=== PATIENT | female | born 1945 | race Caucasian/White ===

== ENCOUNTER → 2022-09-05 09:54 | Outpatient (BNVA) | payer BC, SELFPAY | PROVIDERS: PCP Internal Medicine; Visit Provider Nurse Practitioner Family ==

== ENCOUNTER 2022-12-19 14:56 | Outpatient (AMB) | payer BC, SELFPAY ==
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
[2022-12-19 15:11] VITALS: BP 134/82; PULSE 67; O2SAT 98
== END 2022-12-19 16:08 | disposition home or self-care (01) ==
PROVIDERS: Visit Provider Nurse Practitioner Family
DX: G43.009 Migraine without aura, not intractable, without status migrainosus (principal); G47.33 Obstructive sleep apnea (adult) (pediatric); G47.19 Other hypersomnia; R06.83 Snoring; G47.9 Sleep disorder, unspecified; M54.2 Cervicalgia; R47.1 Dysarthria and anarthria; R41.89 Other symptoms and signs involving cognitive functions and awareness
CPT/HCPCS: 99214

== ENCOUNTER → 2022-12-19 14:56 | Outpatient (BNVA) | payer BC, SELFPAY | PROVIDERS: Visit Provider Nurse Practitioner Family ==

== ENCOUNTER 2023-03-13 13:25 | Outpatient (REF) | payer BC, SELFPAY ==
--- NOTE | ~2023-03-13 | MR_ITS ---
EXAMINATION: MR BRAIN WITHOUT AND WITH CONTRAST CLINICAL INFORMATION: New onset dysarthria, worsening cognitive signs and symptoms. COMPARISON: None available. TECHNIQUE: Multiplanar, multisequence imaging of the brain was performed before and after the intravenous administration of 10 mL of Gadavist. FINDINGS: There is no acute infarction, mass, hemorrhage, or extra-axial collection. No abnormal or unexpected intracranial enhancement is seen. The ventricles, sulci, and basilar cisterns are normal in size and configuration. There is a mild degree of brain parenchymal volume loss. Mild nonspecific T2/FLAIR hyperintensity is seen within the cerebral white matter, typical of chronic microangiopathy. The flow voids of the major intracranial arteries appear intact. The bones and extracranial soft tissues are within normal limits. There is small osseous defect and scarring within the high left parietal scalp/calvarium possibly representing the site of a old zina hole. MR/MR head/brain wo/w con IMPRESSION: No mass lesion, acute infarction, or abnormal intracranial enhancement. No unexpected brain parenchymal volume loss.
[2023-03-13] MEDS: gadobutroL 10 ML VIAL IVPUSH (14:55)
== END 2023-03-13 13:26 | disposition home or self-care (01) ==
LOC: HO.MRI 13:25
PROVIDERS: PCP Internal Medicine; Visit Provider Nurse Practitioner Family
DX: R47.1 Dysarthria and anarthria (principal); F09 Unspecified mental disorder due to known physiological condition; Z85.3 Personal history of malignant neoplasm of breast; Z87.828 Personal history of other (healed) physical injury and trauma
CPT/HCPCS: 70553; A9585

== ENCOUNTER 2023-04-11 14:32 | Outpatient (AMB) | payer BC, SELFPAY ==
--- NOTE | 2023-04-11 14:33 | MHC.OFFVIS ---
Intake Vital Signs 04/11/23 14:34 Height 5 ft 3 in Weight 220 lb 4 oz BMI 39.0 BP 124/72 Blood Pressure Location Rt brachial Position Sitting Pulse 70 Pulse Source Pulse Oximeter Pulse Oximetry (%) 96 Oxygen Delivery Method Room Air Intake Visit Reasons: 3 f/u Headaches - Confirmed Intake Note: Pt presents to the office today for a 3 month follow up for headaches. Pt states her headaches have improved since taking the medications. Allergies hydromorphone Allergy (Unknown, Verified 04/11/23 14:39) Unknown nizatidine Allergy (Unknown, Verified 04/11/23 14:39) Unknown ranitidine Allergy (Unknown, Verified 04/11/23 14:39) Unknown Medication List - Last Reconciled 04/11/23 by ANA PAULA Neff amitriptyline 100 mg PO BEDTIME biotin mcg PO indapamide 2.5 mg PO DAILY lactulose mL PO lidocaine HCl 4% (Aspercreme (lidocaine HCl)) 1 appl topical BID loratadine 10 mg PO DAILY losartan-hydrochlorothiazide 100-25 mg 1 tab PO DAILY metoprolol succinate ER 100 mg PO DAILY pantoprazole 40 mg PO DAILY rimegepant (Nurtec ODT) 75 mg orally daily PRN at onset of headache; 30 days HPI HPI Comments History of Present Illness Details 77-yr-old female presents for f/u visit. Pt denies any significant interval medical changes. However, pt reports she is having a little more depression , which she attributes to needing to downsize her home and some marital issues. She states her headaches are better. She is using the Nurtec as needed, which is helpful. She is noticing that her can trigger her migraines by causing some stress. Her last fall was about a month ago- she tried to step up her stairs (which is curved), but stepped up onto the smaller end and fell forward. She did find that she was falling more when wearing slip on shoes, so she has switched to better fitting shoes and since has been falling less. Feels her memory is stable. Sometimes she can have some word finding difficulties. 03/13/23, FINDINGS: MR/MR head/brain wo/w con -There is no acute infarction, mass, hemorrhage, or extra-axial collection. No abnormal or unexpected intracranial enhancement is seen. The ventricles, sulci, and basilar cisterns are normal in size and configuration. There is a mild degree of brain parenchymal volume loss. Mild nonspecific T2/FLAIR hyperintensity is seen within the cerebral white matter, typical of chronic microangiopathy. -The flow voids of the major intracranial arteries appear intact. The bones and extracranial soft tissues are within normal limits. There is small osseous defect and scarring within the high left parietal scalp/calvarium possibly representing the site of a old zina hole. IMPRESSION: No mass lesion, acute infarction, or abnormal intracranial enhancement. No unexpected brain parenchymal volume loss. FOR[facility], [facility] Medical History Thrombocytopenia Right bundle branch block Lichen sclerosus Gallstone Eczema Carpal tunnel syndrome Anemia Cirrhosis of liver GERD (gastroesophageal reflux disease) Depression HTN (hypertension) H/O traumatic subdural hematoma H/O malignant neoplasm of female breast Surgical History Hx of appendectomy H/O: hysterectomy S/P spinal surgery History of carpal tunnel release History of zina hole surgery Family History Father Hypertension Mother Parkinsons disease Brother Liver cancer Pancreatic cancer Social History Alcohol intake: never Patient Tobacco Use Status: Never used Tobacco Review of Systems Const All systems reviewed & are unremarkable except as noted in HPI and below Physical Exam Vital Signs: Last Vital Signs Pulse 70 04/11/23 14:34 BP 124/72 04/11/23 14:34 Pulse Ox 96 04/11/23 14:34 Oxygen Delivery Method Room Air 04/11/23 14:34 BMI result Body Mass Index 39.0 Const General: cooperative and no acute distress HEENT Head: Yes normocephalic Resp Effort & Inspection: normal respiratory effort and able to speak in complete sentences Neuro Other: A&O x's 3 w/ mild word finding difficulties. Mild dysarthria General: CN's II-XI intact bilaterally Cognition (Neuro): normal cognition Gait exam (Neuro): Assistive device used (cane) Motor exam (neuro): 5/5 motor strength present throughout Psych Appearance: grossly normal Mental Status: mental status grossly normal Speech and movement: Normal speech and movement present Affect: normal affect Attitude: cooperative Thought process: Normal thought process present Thought content: Normal thought content present Insight: Good insight present (Psych) Judgement: Good judgement present (Psych) Assessment & Plan Assessment & Plan (1) Migraine without aura: Code(s): G43.009 - Migraine without aura, not intractable, without status migrainosus (2) Cognitive dysfunction: Code(s): F09 - Unspecified mental disorder due to known physiological condition (3) Gait difficulty: Code(s): R26.9 - Unspecified abnormalities of gait and mobility Plan Reviewed brain MRI w/wo- Mild degree of brain parenchymal volume loss. Mild nonspecific T2/FLAIR hyperintensity is seen within the cerebral white matter, typical of chronic microangiopathy. There is small osseous defect and scarring within the high left parietal scalp/calvarium possibly representing the site of a old zina hole. Has not had HST yet- asks that we hold this for now. Discussed strategies to manage her mood- pt is not interested in seeing a therapist at this time, did suggest that she try to journal and continue to seek out support from her family. In regards to her cognition, advised to stay physically active, socialize, and engage in cognitively stimulating activities. Continue to wear well-fitted shoes. Future considerations- PT for gait tx. Continue Amitriptyline 100mg qhs. Continue Nurtec ODT 75mg qt onset of headache. Hold Indomethacin- pt did not try. Headache tx contraindications- triptans d/t HTN ? Pt to follow-up in 4 months or sooner prn. Coding Level of Care Code Est Pt Level 4 (17038) Diagnoses Migraine without aura G43.009 Cognitive dysfunction F09 Gait difficulty R26.9
[2023-04-11 14:34] VITALS: BP 124/72; PULSE 70; O2SAT 96; BMI 39.0
== END 2023-04-11 15:34 | disposition home or self-care (01) ==
PROVIDERS: PCP Internal Medicine; Visit Provider Nurse Practitioner Family
DX: G43.009 Migraine without aura, not intractable, without status migrainosus (principal); R41.89 Other symptoms and signs involving cognitive functions and awareness; R26.9 Unspecified abnormalities of gait and mobility
CPT/HCPCS: 99214

== ENCOUNTER → 2023-04-11 14:32 | Outpatient (BNVA) | payer BC, SELFPAY | PROVIDERS: PCP Internal Medicine; Visit Provider Nurse Practitioner Family | DX: G47.33 Obstructive sleep apnea (adult) (pediatric) (principal); R06.83 Snoring; G47.9 Sleep disorder, unspecified; G47.19 Other hypersomnia; R47.1 Dysarthria and anarthria; F09 Unspecified mental disorder due to known physiological condition ==